=== PATIENT | male | born 1940 | race Two or more races ===

== ENCOUNTER 2018-01-16 10:55 | Outpatient (CLI) | payer OTHER ==
[~2018-01-16 10:55] MED LIST: ALTACE2.5 MG; AMIODARONE HCL200 MG; CRESTOR5 MG; ISOSORBIDE DINI30 MG; METOPROLOL TART25 MG; PRADAXA150 MG
== END 2018-01-16 10:59 | disposition home or self-care (01) ==
LOC: SONOGRAMA 10:55 → MAMO-SONO 11:45
DX: N40.0 Benign prostatic hyperplasia without lower urinary tract symptoms (principal); N20.0 Calculus of kidney

== ENCOUNTER 2018-11-22 08:31 | Outpatient (CLI) | payer OTHER | END 2018-11-22 08:41 | disposition home or self-care (01) | LOC: SONOGRAMA 08:31 → MAMO-SONO 08:45 | DX: R10.84 Generalized abdominal pain (principal) ==

== ENCOUNTER 2019-02-18 09:46 | Outpatient (CLI) | payer OTHER | END 2019-02-18 09:48 | disposition home or self-care (01) | LOC: RAD 09:46 | DX: J45.998 Other asthma (principal) ==

== ENCOUNTER 2019-10-06 07:29 | Outpatient (CLI) | payer OTHER | END 2019-10-06 07:50 | disposition home or self-care (01) | LOC: MRI 07:29 | DX: M54.41 Lumbago with sciatica, right side (principal); I13.11 Hypertensive heart and chronic kidney disease without heart failure, with stage 5 chronic kidney disease, or end stage renal disease; J45.998 Other asthma | CPT/HCPCS: 72148 ==

== ENCOUNTER 2022-02-23 12:04 | Outpatient (CLI) | payer OTHER | END 2022-02-23 12:13 | disposition home or self-care (01) | LOC: RAD 12:04 | PROVIDERS: ATTEND General Practice | DX: M25.562 Pain in left knee (principal) ==

== ENCOUNTER 2022-03-09 07:21 | Outpatient (CLI) | payer OTHER | END 2022-03-09 07:26 | disposition home or self-care (01) | LOC: NUCLEAR 07:21 | PROVIDERS: ATTEND Internal Medicine Cardiovascular Disease | DX: I20.0 Unstable angina (principal) | CPT/HCPCS: 78452; 93017; A9500; J0153 ==

== ENCOUNTER 2022-11-20 10:43 | Outpatient (CLI) | payer OTHER | END 2022-11-20 10:53 | disposition home or self-care (01) | LOC: SONOGRAMA 10:43 | PROVIDERS: ATTEND Urology | DX: N40.0 Benign prostatic hyperplasia without lower urinary tract symptoms (principal); N20.0 Calculus of kidney; N30.00 Acute cystitis without hematuria; R31.9 Hematuria, unspecified ==

== ENCOUNTER 2023-02-01 09:03 | Outpatient (CLI) | payer OTHER | END 2023-02-01 09:10 | disposition home or self-care (01) | LOC: RAD 09:03 | PROVIDERS: ATTEND Specialist | DX: I11.9 Hypertensive heart disease without heart failure (principal) ==

== ENCOUNTER 2023-03-16 17:48 | Emergency (ER) | payer OTHER ==
[~2023-03-16] VITALS: Ht 160 cm; Wt 82.6 kg
[2023-03-16] MEDS ORDERED: ELIQUIS2.5 MG PO (18:02)
[2023-03-16] MEDS ORDERED: NORVASC2.5 M1 PO (18:02)
== END 2023-03-16 22:46 | disposition home or self-care (01) ==
LOC: ER 17:48
DX: N20.1 Calculus of ureter (principal); K80.50 Calculus of bile duct without cholangitis or cholecystitis without obstruction
CPT/HCPCS: 36415; 74176; 96365; 99284; J1885

== ENCOUNTER 2023-03-22 18:20 | Inpatient (IN) | payer OTHER ==
[~2023-03-22] VITALS: Ht 251.5 cm; Wt 5.0 kg
[~2023-03-22 18:20] MED LIST changes: +ELIQUIS2.5 MG PO; +NORVASC2.5 M1 PO
== END 2023-03-25 10:26 | disposition home or self-care (01) | DRG 694 ==
LOC: ER 18:20 → MEDJ 23:20
PROVIDERS: Urology; ADMIT Specialist; ATTEND Specialist
PROC: BW21ZZZ Computerized Tomography (CT Scan) of Abdomen and Pelvis (ICD-10-PCS; 2023-03-22)
PROC: B24BZZZ Ultrasonography of Heart with Aorta (ICD-10-PCS; 2023-03-23)
PROC: 0TFD8ZZ Fragmentation in Urethra, Via Natural or Artificial Opening Endoscopic (ICD-10-PCS; 2023-03-24)
PROC: 0T7D8DZ Dilation of Urethra with Intraluminal Device, Via Natural or Artificial Opening Endoscopic (ICD-10-PCS; principal; 2023-03-24 08:00)
DX: N21.1 Calculus in urethra (principal); N13.9 Obstructive and reflux uropathy, unspecified; I25.10 Atherosclerotic heart disease of native coronary artery without angina pectoris; I11.9 Hypertensive heart disease without heart failure; Z20.822 Contact with and (suspected) exposure to COVID-19; Z95.1 Presence of aortocoronary bypass graft; I48.91 Unspecified atrial fibrillation

== ENCOUNTER 2023-04-20 07:54 | Emergency (ER) | payer OTHER ==
[~2023-04-20] VITALS: Ht 160 cm; Wt 79.8 kg
== END 2023-04-20 13:33 | disposition home or self-care (01) ==
LOC: ER 07:54
PROVIDERS: General Practice
DX: N39.0 Urinary tract infection, site not specified (principal); R31.9 Hematuria, unspecified; K80.20 Calculus of gallbladder without cholecystitis without obstruction; Z87.442 Personal history of urinary calculi; I10 Essential (primary) hypertension

== ENCOUNTER → 2023-06-24 | Outpatient (CLI) | payer OTHER | END | disposition home or self-care (01) | LOC: SONOGRAMA 09:43 | PROVIDERS: ATTEND Urology | DX: R31.1 Benign essential microscopic hematuria (principal) ==

== ENCOUNTER 2024-03-15 09:59 | Emergency (ER) | payer OTHER ==
[~2024-03-15] VITALS: Ht 160 cm; Wt 78.9 kg
[2024-03-15] MEDS ORDERED: FARXIGA10 MG (10:03)
[2024-03-15] MEDS ORDERED: ACETAMINOPHEN 500 MG GEL..CAP PO ONE ×2 (10:44→10:45)
[2024-03-15 11:21] LABS: HEMATOCRIT 44.2 % (39.0-48.0); MEAN CELL VOLUME 86.8 fL (80.0-100.00); MEAN CORPUSCULAR HEMOGLOBIN 29.4 pg (27.00-32.0); MEAN CORPUSCULAR HGB CONC 33.9 g/dl (32.0-36.0); PLATELET COUNT 193 K/uL (150-450); RED BLOOD COUNT 5.09 M/uL (4.00-6.00); RED CELL DISTRIBUTION WIDTH 14.8 % (11.5-14.5)
[2024-03-15 11:42] LABS: CALCIUM 9.8 mg/dL (8.5-10.1); CREATININE SERUM 1.84 mg/dL (0.70-1.30); GFR 35.48; POTASSIUM 4.82 mEq/L (3.5-5.1)
[2024-03-15 12:00] LABS: URINE APPEARANCE Clear; URINE BACTERIA 120.9 uL (0.0-1933); URINE BILIRRUBIN Negative (NEGATIVE); URINE BLOOD Trace; URINE COLOR Yellow; URINE EPITHELIAL CELLS 17.7 uL (0.0-38.8); URINE KETONE Trace (NEGATIVE); URINE LEUKOCYTE Negative; URINE NITRATE Negative; URINE PROTEIN 30 (NEGATIVE); URINE RBC 9.9 uL (0.0-20.8); URINE UROBILINOGEN 0.2 E.U./dl; URINE WBC 29.6 uL (0.0-23.2)
[2024-03-15 12:04] LABS: URINE GLUCOSE 500 MG/DL (NEGATIVE)
== END 2024-03-15 13:29 | disposition home or self-care (01) ==
LOC: ER 09:59
PROVIDERS: General Practice
DX: B34.9 Viral infection, unspecified (principal); R53.81 Other malaise; Z20.822 Contact with and (suspected) exposure to COVID-19; I10 Essential (primary) hypertension

== ENCOUNTER 2024-05-25 09:45 | Outpatient (CLI) | payer OTHER ==
[~2024-05-25 09:45] MED LIST changes: +FARXIGA10 MG
== END 2024-05-25 09:46 | disposition home or self-care (01) ==
LOC: SONOGRAMA 09:45
PROVIDERS: ATTEND Urology
DX: N20.0 Calculus of kidney (principal); R31.1 Benign essential microscopic hematuria

== ENCOUNTER 2024-07-15 07:15 | Outpatient (CLI) | payer OTHER | END 2024-07-15 07:22 | disposition home or self-care (01) | LOC: TOM 07:15 | PROVIDERS: ATTEND Specialist | DX: K42.9 Umbilical hernia without obstruction or gangrene (principal) | CPT/HCPCS: 74177; Q9965 ==

== ENCOUNTER 2024-11-15 09:59 | Emergency (ER) | payer OTHER ==
[~2024-11-15] VITALS: Ht 160 cm; Wt 73.5 kg
[2024-11-15 11:55] LABS: HEMATOCRIT 47.3 % (39.0-48.0); HEMOGLOBIN 15.7 g/dL (13-16.00); MEAN CELL VOLUME 86.4 fL (80.0-100.00); MEAN CORPUSCULAR HEMOGLOBIN 28.6 pg (27.00-32.0); MEAN CORPUSCULAR HGB CONC 33.2 g/dl (32.0-36.0); PLATELET COUNT 227 K/uL (150-450); RED BLOOD COUNT 5.48 M/uL (4.00-6.00); RED CELL DISTRIBUTION WIDTH 14.8 % (11.5-14.5)
[2024-11-15 12:11] LABS: INR 1.05; PARTIAL THROMBOPLASTIN TIME 27.3 SECONDS (22.0-34.0); PROTHROMBIN TIME 11.4 SECONDS (9.0-11.5)
[2024-11-15 12:14] LABS: ALBUMIN 3.9 gm/dL (3.4-5.0); BILIRUBIN TOTAL 0.9 mg/dL (0.3-1.2); CALCIUM 9.7 mg/dL (8.5-10.1); CREATININE SERUM 1.25 mg/dL (0.70-1.30); GFR 55.3; GLOBULINA 4.9 G/DL (2.4-3.5); POTASSIUM 4.08 mEq/L (3.5-5.1); TOTAL PROTEIN 8.8 gm/dL (6.4-8.2)
[2024-11-15] MEDS ORDERED: LevETIRAcetam 500 MG/5 ML VIAL IV ONE ×2 (12:15→12:34)
[2024-11-15] MEDS ORDERED: 0.9 % SODIUM CHLORIDE 1,000 ML IV ONE (12:45)
[2024-11-15 13:09] LABS: URINE APPEARANCE Clear; URINE BILIRRUBIN Negative (NEGATIVE); URINE BLOOD Small; URINE COLOR Yellow; URINE KETONE 15 (NEGATIVE); URINE LEUKOCYTE Negative; URINE NITRATE Negative; URINE PROTEIN 30 (NEGATIVE); URINE UROBILINOGEN 0.2 E.U./dl
[2024-11-15 13:15] LABS: URINE BACTERIA 39.1 uL (0.0-1933); URINE EPITHELIAL CELLS 3.1 uL (0.0-38.8); URINE RBC 25.3 uL (0.0-20.8); URINE WBC 8.2 uL (0.0-23.2)
[2024-11-15 13:37] LABS: URINE CAST 0.14 uL (0.0-1.40); URINE GLUCOSE >=1000 MG/DL (NEGATIVE)
[2024-11-15 16:24] VITALS: BP 150/66; O2SAT 100
== END 2024-11-15 16:53 | disposition designated cancer center or children's hospital (05) ==
LOC: ER 09:59
PROVIDERS: General Practice
DX: I63.9 Cerebral infarction, unspecified (principal); I61.9 Nontraumatic intracerebral hemorrhage, unspecified; G81.94 Hemiplegia, unspecified affecting left nondominant side; I10 Essential (primary) hypertension
CPT/HCPCS: 36415; 70450; 71045; 82803; 93005; 93041; 96365; 96366; 99285; J3490